=== PATIENT | male | born 1965 | race Caucasian/White ===

== ENCOUNTER → 2021-05-16 | Outpatient (CLI) | payer OTHER ==
[~2021-05-16] MED LIST: Bactrim Ds Tab1 EACH; LOSA50
== END ==
LOC: LAB SHORT 17:29
DX: N45.1 Epididymitis (principal)
CPT/HCPCS: 87077; 87086; 87186

== ENCOUNTER 2023-07-22 11:41 | Day surgery (SDC) | payer OTHER ==
[~2023-07-22] VITALS: Ht 172.7 cm; Wt 98.6 kg
[~2023-07-22 11:41] MED LIST changes: +Lidocaine 1%-Epineph 1:100000 20 ML MDV ONE
[2023-07-22] MEDS ORDERED: CeFAZolin Sodium 2,000 MG VIAL ONE (12:10)
[2023-07-22] MEDS ORDERED: NS 50 ML IV ONE (12:10)
[2023-07-22] MEDS ORDERED: Lactated Ringer's 1,000 ML IV ONE (12:25)
[2023-07-22] MEDS ORDERED: propofoL 50 ML IV ONE ×2 (13:07→13:32)
--- NOTE | 2023-07-22 13:17 | NUR ---
07/22/23 1317 Connie Craft PREFORMED A BLOCK OF THE RIGHT HAND IN PREOP. TIMEOUT AT 1309. START AT 1309. END AT 1310. PATIENT TOLERATED WELL. 10CC OF LOCAL WAS INJECTED.
--- NOTE | 2023-07-22 14:56 | NUR ---
07/22/23 1456 Federico Jacobs PT ADVISED TO MONITOR B/P AT HOME, AND FOLLOW UP WITH PCP. PT REPORTED HE FELT LIGHT HEADED. THIS FEELING IMPROVED THROUGHOUT STAY IN SDU, AND WAS MILD UPON D/C. PT STATED THIS FEELING IS NORMAL FOR HIM FOLLOWING SEDATION. PT DENIED OTHER CARDIAC AND RESPIRATORY SYMPTOMS--INCLUDING CP, CARR, SOB, WEAKNESS, VISUAL DISTURBANCE, NAUSEA, AND DIZZINESS--AND NONE WERE OBSERVED. HE DENIED PAIN, EXPRESSED SATISFACTION WITH CARE, AND EXPRESSED READINESS TO RETURN HOME.
[2023-07-22 14:58] VITALS: BP 133/89
== END 2023-07-22 14:45 | disposition home or self-care (01) ==
LOC: ORSCSDS 11:41
PROVIDERS: Orthopaedic Surgery
PROC: 0JBJ0ZZ Excision of Right Hand Subcutaneous Tissue and Fascia, Open Approach (ICD-10-PCS; principal; 2023-07-22 13:00)
PROC: 0LQ70ZZ Repair Right Hand Tendon, Open Approach (ICD-10-PCS; principal; 2023-07-22 13:00)
DX: S66.320A Laceration of extensor muscle, fascia and tendon of right index finger at wrist and hand level, initial encounter (principal); W31.89XA Contact with other specified machinery, initial encounter; I10 Essential (primary) hypertension; E11.9 Type 2 diabetes mellitus without complications; Z79.899 Other long term (current) drug therapy; Z68.33 Body mass index [BMI] 33.0-33.9, adult
CPT/HCPCS: 82947; J0690; J2704; J7120

== ENCOUNTER → 2024-05-17 | Outpatient (CLI) | payer OTHER ==
[~2024-05-17] MED LIST changes: -Lidocaine 1%-Epineph 1:100000 20 ML MDV ONE
== END ==
LOC: LAB 08:08 → LAB SHORT 08:08
DX: D22.9 Melanocytic nevi, unspecified (principal)
CPT/HCPCS: 88305

== ENCOUNTER 2024-12-14 08:31 | Day surgery (SDC) | payer OTHER ==
[2024-12-14] VITALS (11 sets, daily range): BP systolic 135–158; BP diastolic 70–86
[~2024-12-14] VITALS: Ht 172.7 cm; Wt 93.3 kg
[~2024-12-14 08:31] MED LIST changes: +BASAGLAR K100 UNIT/3 SC; +Bentyl10 MG PO; +CeFAZolin Sodium 2,000 MG in NS 100 ML IV SCH; +LATA.005SO BOTHEYES; +LEVSOD100 PO; -LOSA50; +LOSA50 PO; +ROSUVASTATIN CA10 MG PO; +Tranexamic Acid 100 ML IV SCH
[2024-12-14] MEDS ORDERED: FentaNYL Citrate 50 MCG/ML 2 ML Injection ONE (08:37)
[2024-12-14] MEDS ORDERED: Midazolam HCl 1MG / ML 2ML Vial ONE (08:37)
[2024-12-14] MEDS ORDERED: Bupivacaine 0.5% HCl 5 MG/ML 30MLVIAL ONE (08:38)
[2024-12-14] MEDS ORDERED: FARXIGA10 MG PO (08:53)
[2024-12-14] MEDS ORDERED: Ondansetron HCl 2 MG / ML 2ML Vial ONE ×2 (08:56→10:21)
[2024-12-14] MEDS ORDERED: Sugammadex Sodium 200 MG/2ML SDV (100 MG/ML) ONE ×2 (08:56→10:21)
[2024-12-14] MEDS ORDERED: Bupivacaine 0.25% Epi 1:200000 30 ML Vial ONE (09:11)
[2024-12-14] MEDS ORDERED: EPINEPhrine HCl 1 MG / ML 30ML Vial ONE (09:11)
--- NOTE | 2024-12-14 09:31 | NUR ---
BLOCK INTRA-SCALINE TIMEOUT 932 /W START 932 END: 9168
[2024-12-14] MEDS ORDERED: Rocuronium Bromide 10 MG/ML 5ML Injection IV ONE (09:48)
[2024-12-14] MEDS ORDERED: HYDROmorphone HCl/Pf 1MG SYR IV PRN ×2 (10:25)
[2024-12-14] MEDS ORDERED: Ondansetron HCl 2 MG / ML 2ML Vial IV PRN (10:25)
[2024-12-14] MEDS ORDERED: FentaNYL Citrate 50 MCG/ML 2 ML Injection IV PRN ×2 (10:25)
[2024-12-14] MEDS ORDERED: Dexamethasone Sod Phos 10 MG/ML 1ML VIAL IV ONE (11:19)
[2024-12-14] MEDS ORDERED: HYDROmorphone HCl/Pf 1MG SYR ONE ×2 (11:42→11:57)
--- NOTE | 2024-12-14 12:21 | NUR ---
Discharge instructions reviewed with patient. Patient verbalizes understanding. Copy given to patient to take home. Patient States Post-Procedure ride home has been arranged. Discharged via wheelchair to private car for ride home.
== END 2024-12-14 23:00 | disposition home or self-care (01) ==
LOC: ORSCMMR 08:31 → ORD 09:45 → ORSCMMR 09:45 → ORD 10:15 → ORSCMMR 23:00
PROVIDERS: Orthopaedic Surgery Sports Medicine
PROC: 0RNK4ZZ Release Left Shoulder Joint, Percutaneous Endoscopic Approach (ICD-10-PCS; principal; 2024-12-14 09:45)
DX: M75.102 Unspecified rotator cuff tear or rupture of left shoulder, not specified as traumatic (principal); M75.42 Impingement syndrome of left shoulder; I10 Essential (primary) hypertension; E11.9 Type 2 diabetes mellitus without complications; Z79.4 Long term (current) use of insulin; Z79.899 Other long term (current) drug therapy; E07.9 Disorder of thyroid, unspecified; H40.9 Unspecified glaucoma
CPT/HCPCS: 82947; C1713; J0165; J0690; J1100; J1171; J2250; J2405; J2704; J3010; J7120